=== PATIENT | female | born 1935 | race Caucasian/White ===

== ENCOUNTER → 2016-08-17 | Outpatient (CLI) | payer MEDICARE, BC ==
[2015-10-15 18:22] VITALS: BP 156/68
[~2016-08-17] MED LIST: AMLOPIDINE PO; ASPIRIN 81M81 MG/TA2 PO; ENDUR-ACIN500 MG PO; FERROUS SULFATE65 MG PO; LOVASTATIN40 M1 PO; OMEGA 3 FISH O1 EACH PO; OSCAL 500MG/VI500 MG PO; PROAIR RESPICL90 MCG INH; TENORMIN 5050 MG/TAB PO; [UNRECOGNIZED DRUG - OTHER] PO
== END ==
LOC: RAD 12:00
DX: I27.2 Other secondary pulmonary hypertension (principal); I82.4Z2 Acute embolism and thrombosis of unspecified deep veins of left distal lower extremity; I35.1 Nonrheumatic aortic (valve) insufficiency; I34.0 Nonrheumatic mitral (valve) insufficiency

== ENCOUNTER 2020-04-14 14:20 | Emergency (ER) | payer MEDICARE, BC ==
[~2020-04-14] VITALS: Ht 157.5 cm; Wt 80.0 kg
[2020-04-14 15:00] LABS: EOS # 0.1 (0.04-0.40); EOS % 0.8 % (1.0-5.0); HEMATOCRIT 40.4 % (37.0-47.0); HEMOGLOBIN 12.4 g/dL (12.5-16.0); LYMPH# 1.5 (1.50-4.00); MEAN CELL VOLUME 91 fl (78-100); MEAN CORPUSCULAR HEMOGLOBIN 28 pg (27-31); MEAN CORPUSCULAR HGB CONC 31 g/dL (33-37); MEAN PLATELET VOLUME 9.5 fl (7.4-10.4); MONO # 0.7 (0.20-0.80); NEU # 8.9 (1.40-6.50); PLATELET COUNT 238 K/mm3 (130-400); RED BLOOD COUNT 4.44 M/mm3 (4.10-5.30); RED CELL DISTRIBUTION WIDTH 13.8 % (11.5-14.5); WHITE BLOOD COUNT 11.2 K/mm3 (4.8-10.8)
[2020-04-14 15:11] LABS: ALBUMIN 3.5 g/dL (3.4-4.8); POTASSIUM 4.5 mmol/L (3.5-5.1)
[2020-04-14 15:12] LABS: CALCIUM 8.5 mg/dL (8.3-10.5)
[2020-04-14 15:13] LABS: TOTAL PROTEIN 6.5 g/dL (6.2-8.1)
[2020-04-14 15:15] LABS: TOTAL BILIRUBIN 0.4 mg/dL (0.2-1.2)
[2020-04-14 18:55] LABS: URINE APPEARANCE CLOUDY; URINE COLOR YELLOW
[2020-04-14 18:56] LABS: URINE BILIRUBIN NEGATIVE (NEGATIVE); URINE BLOOD TRACE (NEGATIVE); URINE GLUCOSE NEGATIVE (NEGATIVE); URINE KETONE NEGATIVE (NEGATIVE); URINE LEUKOCYTE ESTERASE NEGATIVE (NEGATIVE); URINE MUCUS PRESENT (NOT PRESENT); URINE NITRATE NEGATIVE (NEGATIVE); URINE PROTEIN(semi-quant) 2+ mg/dL (NEGATIVE); URINE UROBILINOGEN NORMAL (NORMAL)
[2020-04-14 19:26] VITALS: BP 165/87
== END 2020-04-14 19:28 | disposition home or self-care (01) ==
LOC: ED 14:20
PROVIDERS: Physician Assistant
DX: S43.005A Unspecified dislocation of left shoulder joint, initial encounter (principal); S00.83XA Contusion of other part of head, initial encounter; Z91.81 History of falling; Z79.82 Long term (current) use of aspirin; W22.01XA Walked into wall, initial encounter; Y92.009 Unspecified place in unspecified non-institutional (private) residence as the place of occurrence of the external cause
CPT/HCPCS: A4565; J3010; J3360

== ENCOUNTER 2020-05-18 09:00 | Outpatient (RCR) | payer MEDICARE, BC | END 2020-06-25 16:30 | disposition home or self-care (01) | LOC: PT 09:00 | DX: M25.512 Pain in left shoulder (principal) ==

== ENCOUNTER 2020-08-17 11:00 | Outpatient (RCR) | payer MEDICARE, BC | END 2020-11-15 | disposition home or self-care (01) | LOC: PT | DX: M25.512 Pain in left shoulder (principal) ==

== ENCOUNTER 2020-11-19 12:53 | Outpatient (RCR) | payer MEDICARE, BC | END 2021-02-17 | disposition home or self-care (01) | LOC: PT | DX: M25.512 Pain in left shoulder (principal) ==

== ENCOUNTER → 2021-01-20 | Outpatient (CLI) | payer MEDICARE, BC | LOC: LAB 11:33 | PROVIDERS: Nurse Practitioner Family | DX: K57.30 Diverticulosis of large intestine without perforation or abscess without bleeding (principal); K86.2 Cyst of pancreas; K80.50 Calculus of bile duct without cholangitis or cholecystitis without obstruction; Z90.49 Acquired absence of other specified parts of digestive tract | CPT/HCPCS: Q9967 ==

== ENCOUNTER → 2022-06-28 | Outpatient (CLI) | payer MEDICARE, BC | LOC: RAD 14:44 | DX: J18.9 Pneumonia, unspecified organism (principal); I27.20 Pulmonary hypertension, unspecified; K44.9 Diaphragmatic hernia without obstruction or gangrene; Z98.890 Other specified postprocedural states ==